=== PATIENT | female | born 1960 ===

== ENCOUNTER → 2021-12-16 | Outpatient (CLI) | payer OTHER ==
--- NOTE | 2021-12-18 09:34 | RAD ---
DATE: 12/16/2021 EXAM: MG BILAT SCREEN+PRINCE HISTORY: Screening. Sister with breast cancer at age of 60. COMPARISON: 12/28/2017, 08/04/2016, 07/26/2012 This study was interpreted with the benefit of Computerized Aided Detection (CAD). Breast Density: SCATTERED The breast parenchyma shows scattered fibroglandular densities. Breast pare nchyma level B. FINDINGS: There is a 6 mm ovoid focal asymmetry in the retroareolar left breast around 3-4 o'clock, 1 .5 cm posterior to the nipple. No suspicious calcifications or architectural distortion in either [place] ast. IMPRESSION: 6 mm focal asymmetry in the retroareolar left breast. Recommend spot compression CC and M LO views and ultrasound to further evaluate. BI-RADS CATEGORY: 0 INCOMPLETE: NEEDS ADDITIONAL IMAGING EVALUATION AND/OR PRIOR MAMMOGRAMS FOR ABI RISON. RECOMMENDED FOLLOW-UP: ADD ADDITIONAL IMAGING PQRS compliance statement: Patient information was entered into a reminder system with a target due d ate for the next mammogram. Mammography is a sensitive method for finding small breast cancers, but it does not detect them all a nd is not a substitute for careful clinical examination. A negative mammogram does not negate a clin ically suspicious finding and should not result in delay in biopsying a clinically suspicious abnorma lity. "Our facility is accredited by the [employer]amm[employer]." Electronically signed by: Tania Garcia MD (12/18/2021 9:32 AM) [id number]
== END ==
LOC: MAMMO 14:11
PROVIDERS: ATTEND Internal Medicine
DX: Z12.31 Encounter for screening mammogram for malignant neoplasm of breast (principal)
CPT/HCPCS: 77063; 77067

== ENCOUNTER → 2021-12-23 | Outpatient (CLI) | payer OTHER ==
--- NOTE | 2021-12-23 09:10 | RAD ---
EXAM: Left breast diagnostic mammogram; left breast sonogram. HISTORY: 61-year-old female presents for evaluation of asymmetry within the left breast demonstrate o n a mammogram dated 12/16/2021. TECHNIQUE: Spot compression views of the left breast are obtained. Sonographic imaging of the left br east targeted to the site of mammographic asymmetry was also performed. COMPARISON: 12/16/2021 and 12/28/2017 BREAST PARENCHYMAL DENSITY: Level B - Scattered fibroglandular densities. FINDINGS: There is no persistent finding of concern within the left breast with additional mammograph ic views. Sonographic imaging of the left breast demonstrates no suspicious finding. IMPRESSION: 1. No persistent suspicious mammographic or sonographic finding within the left breast. 2. BI-RADS Category 2: Benign finding(s). RECOMMENDATION: Annual mammography is recommended. If your mammogram demonstrates that you have dense breast tissue, which could hide abnormalities, and if you have other risk factors for breast cancer that have been identified, you might benefit from s upplemental screening tests that may be suggested by your ordering physician. Dense breast tissue, i n and of itself, is a relatively common condition. This information is not provided to cause undue c oncern, but rather to raise your awareness and to promote discussion with your physician regarding th e presence of other risk factors, in addition to dense breast tissue. A report of your mammography re sults will be sent to you and your physician. You should contact your physician if you have any ques tions or concerns regarding this report. Mammography is a sensitive method for finding small breast cancers, but it does not detect them all a nd is not a substitute for careful clinical examination. A negative mammogram does not negate a clin ically suspicious finding and should not result in delay in biopsying a clinically suspicious abnorma lity. PQRS compliance statement - Patient information was entered into a reminder system with a target due date for the next mammogram. "Our facility is accredited by the [employer]amm[employer]." Electronically signed by: Dora Chung MD (12/23/2021 9:07 AM) [id number]
== END ==
LOC: MAMMO 08:22
PROVIDERS: ATTEND Internal Medicine
DX: R92.8 Other abnormal and inconclusive findings on diagnostic imaging of breast (principal)
CPT/HCPCS: 76641; 77065